=== PATIENT | male | born 1950 | race Caucasian/White ===

== ENCOUNTER 2017-03-19 12:15 | Emergency (ER) | payer OTHER ==
[2017-03-19 12:26] VITALS: BP 143/74
[2017-03-19] MEDS ORDERED: BOOSTRIX IM ONE (12:35)
--- NOTE | 2017-03-19 12:39 | Emergency Department Report ---
ED Trauma HPI - General Chief Complaint: Extremity Injury, Upper Stated Complaint: FALL 8 FEET Time Seen by Provider: 03/19/17 12:30 Source: patient, family - History of Present Illness Occurred: just prior to arrival Severity: severe Pain Location: back, upper extremity, lower extremity Method of Injury: fall (8 FT) Modifying Factors: improves with: cold therapy, immobilization, movement, pain medication, rest Loss of Consciousness: no loss of consciousness Associated Symptoms (Fall): denies: abdominal pain, chest pain, confusion, dizziness, headache, lightheadedness, muscle spasms, nausea/vomiting, neck pain , ringing in ears, seizures, shortness of breath, slurred speech, trouble walking, vision changes Allergies/Adverse Reactions: Allergies Penicillins Allergy (Verified 03/19/17 12:21) Hives Home Medications: Ambulatory Orders HYDROcodone/APAP 7.5-325 [[place] 7.5/325] 1 each PO Q6HR PRN #20 tablet 03/19/17 ED Review of Systems ROS: Stated complaint: FX R HAND Other details as noted in HPI Comment: All other systems reviewed and negative Constitutional: denies: fever Eyes: denies: eye pain ENT: denies: throat pain Respiratory: denies: cough, orthopnea Cardiovascular: denies: chest pain Endocrine: denies: excessive sweating, flushing, intolerance to cold, intolerance to heat Gastrointestinal: denies: abdominal pain Genitourinary: denies: urgency, dysuria Musculoskeletal: back pain (THORACIC), joint swelling (L WRIST), other (R GREAT TOE) Skin: other (ABRASION RLE) Neurological: denies: headache, weakness, numbness, paresthesias, confusion Psychiatric: denies: anxiety, depression Hematological/Lymphatic: denies: easy bleeding ED Past Medical Hx - Past Medical History Previous Medical History?: No - Surgical History Past Surgical History?: No - Social History Smoking Status: Never Smoker Substance Use Type: None - Medications Home Medications: Home Medications Medication Instructions Recorded Confirmed Last Taken Type HYDROcodone/APAP 7.5-325 [[place] 1 each PO Q6HR PRN #20 tablet 03/19/17 Unknown Rx 7.5/325] ED Physical Exam - General Limitations: No Limitations General appearance: alert - Eye Eye exam: Present: PERRL - ENT ENT exam: Present: mucous membranes moist - Neck Neck exam: Present: normal inspection - Respiratory Respiratory exam: Present: normal lung sounds bilaterally - Cardiovascular Cardiovascular Exam: Present: regular rate - GI/Abdominal GI/Abdominal exam: Present: soft - Rectal Rectal exam: Present: deferred - Extremities Exam Extremities exam: Present: tenderness, normal capillary refill - Expanded Lower Extremity Exam Right Hip exam: Present: normal inspection Upper Leg exam: Present: normal inspection Knee exam: Present: normal inspection Lower Leg exam: Present: normal inspection Ankle exam: Present: normal inspection Foot/Toe exam: Present: normal inspection Neuro vascular tendon exam: Present: no vascular compromise Left Hip exam: Present: normal inspection Upper Leg exam: Present: normal inspection Knee exam: Present: normal inspection Lower Leg exam: Present: erythema (ABRASION) Ankle exam: Present: abrasion (GREAT TOE) Foot/Toe exam: Present: abrasion, erythema Neuro vascular tendon exam: Present: no vascular compromise 1 - TOE PAIN AND ABRASION 2 - ABRASION - Back Exam Back exam: Present: paraspinal tenderness - Neurological Exam Neurological exam: Present: alert, oriented X3 - Psychiatric Psychiatric exam: Present: normal affect, normal mood - Skin Skin exam: Present: warm, dry, other (ABRASION) ED Course Vital Signs 03/19/17 12:22 Temperature 97.5 F L Pulse Rate 65 Respiratory 18 Rate Blood Pressure 143/74 O2 Sat by Pulse 99 Oximetry - Reevaluation(s) Reevaluation #1: SP FALL FROM LADDER ? LOC TO ER C COLLAR PLACED ? LOC HERE W [facility] INTACT SCANS NOTED WOUND CARE WRIST AND TOE SPLINT MEDICATED. Reevaluation #2: 03/19/17 14:04 DR LOPEZ UPDATED ORTHO PAGED SPLINT ORDERED AGAIN TO JOELLE SOME PAIN RELIEF W ICE AND RX Reevaluation #3: 03/19/17 14:11 DR REYNOLDS PHONED AND AWARE OF BACK T3 SUP ENDPLATE AND WRIST FX PER RAD READ PLAN OBTAINED FOLLOWS DC HOME W FU ED Medical Decision Making - Lab Data Result diagrams: 03/19/17 13:30 03/19/17 13:30 - Radiology Data Radiology results: report reviewed, image reviewed - Medical Decision Making SEE NOTE - Differential Diagnosis 8 FT FALL RO FX Critical care attestation.: If time is entered above; I have spent that time in minutes in the direct care of this critically ill patient, excluding procedure time. ED Disposition Clinical Impression: Abrasion hip/leg, Toe fracture, Thoracic spine fracture, Wrist fracture, left, Fall, Leukocytosis Disposition: - TO HOME OR SELFCARE Is pt being admited?: No Does the pt Need Aspirin: No Condition: Stable Instructions: Toe Fracture (ED), Wrist Fracture in Adults (ED), Thoracolumbar Fracture (ED) Additional Instructions: REST NO LADDERS NO WORK WARM COMPRESSES TO BACK ICE TO WRIST KEEP SPLINT ON UNTIL TUESDAY WHEN DOCTOR TAKES IT OFF KEEP R RODRIGUES WOUND CLEAN AND DRY. ICE IF SORE CHANGE DRESSING TO YOUR TOE EVERY DAY. KEEP CLEAN AND DRY WASH WITH SOAP AND WATER YOU NEED TO DO THE FOLLOWING 1. FOLLOW UP WITH DR REYNOLDS ON TUESDAY- WE HAVE CALLED HIM AND HE IS AWARE OF YOU 2 FOLLOW UP WITH PCP ON TUESDAY TO RECHECK YOUR LAB WORK- YOUR WHITE BLOOD CELLS HIGH TODAY WITH NO INFECTION SEE LIST BELOW Prescriptions: HYDROcodone/APAP 7.5-325 [[place] 7.5/325] 1 each PO Q6HR PRN #20 tablet PRN Reason: Pain Referrals: PRIMARY CARE, [Primary Care Provider] - 3-5 Days JERRI TORRES MD [Staff Physician] - 3-5 Days TWAN REYNOLDS MD [Staff Physician] - 3-5 Days Time of Disposition: 15:59
[2017-03-19] MEDS ORDERED: NORCO 5/325 PO ONE (13:00)
--- NOTE | 2017-03-19 13:27 | Cat Scan Report ---
CT SCAN OF THE CERVICAL SPINE: HISTORY: Trauma, injury. TECHNIQUE: Contiguous 1.25 mm axial images of the cervical spine were obtained. Sagittal and coronal reformatted images. FINDINGS: There is normal alignment of the cervical spine. The body, pedicles and posterior ligaments appear normal. No evidence of fracture or subluxation is seen. Mild multilevel degenerative disc disease and facet arthropathy are noted throughout the cervical region. The spinal canal appears normal. The prevertebral soft tissues appear normal. IMPRESSION: Mild cervical spondylosis. No acute process is noted.
--- NOTE | 2017-03-19 13:28 | Cat Scan Report ---
CT HEAD WITHOUT CONTRAST: HISTORY: Trauma. TECHNIQUE: Sequential 2.5mm CT images. COMPARISON: none. FINDINGS: Cerebral Parenchyma: Within normal limits. Cerebellum: Within normal limits. Brainstem: Within normal limits. Ventricles: Normal. Sella: Normal. Extra-axial spaces: Normal. Basal Cisterns: Normal. Intracranial Hemorrhage: None. Midline Shift: None. Calvarium: Normal. Sinuses: Normal. Mastoid Air Cells: Normal. Visualized Orbits: Normal. IMPRESSION: Cranial CT scan within normal limits.
--- NOTE | 2017-03-19 13:30 | Cat Scan Report ---
CT THORACIC SPINE WITHOUT CONTRAST History: Trauma. Technique: Helical CT without IV contrast. Sagittal and coronal reformatted images. Findings: Very subtle fracture lines are identified throughout the superior endplate of T3 which is best demonstrated on image 49, series 3. No loss of height or retropulsion of bony fragments into the canal. The remaining vertebral bodies are normal height and alignment. No additional fractures are identified. The posterior elements are intact. Minimal multilevel degenerative disc disease is noted. The spinal canal appears normal caliber. The paraspinal soft tissues are unremarkable. Mild osteopenia is noted. Impression: Subtle nondisplaced T3 superior endplate fracture.
--- NOTE | 2017-03-19 13:32 | Cat Scan Report ---
CT LUMBAR SPINE WITHOUT CONTRAST History: Trauma Technique: Helical CT with sagittal and coronal reformatted images. Findings: Osteopenia is noted. There is 5 mm anterolisthesis of L4 with respect to L5 which appears to be secondary to degenerative facet arthropathy. No pars defect is identified. There is normal alignment of the remaining vertebral bodies. No evidence for fracture or bone lesion. Mild to moderate multilevel facet arthropathy is identified. Mild to moderate disc space narrowing is identified at L4-5 and L5-S1. Mild to moderate central canal stenosis and mild bilateral neural foraminal narrowing is suspected at L4-5. Impression: No evidence for acute injury. Osteopenia. Degenerative changes as described. Spondylolisthesis of L4 with respect L5 with mild to moderate central canal narrowing.
--- NOTE | 2017-03-19 13:39 | XRay Report ---
LEFT WRIST, 4 views: HISTORY: Left wrist pain. A comminuted, impacted fracture of the distal radius is identified with intra-articular extension. There is posterior angulation of the distal radius estimated at 25 degrees. The distal ulna and carpal bones are grossly intact. There is diffuse soft tissue swelling. IMPRESSION: Comminuted, impacted, intra-articular fracture of the distal radius. Consultation with orthopedics is recommended.
--- NOTE | 2017-03-19 13:40 | XRay Report ---
LEFT TOES, 3 views: History: Laceration, pain, fall. A Chip fracture or avulsion fracture is identified at the base of the great toe medially. No calcified callus. This has the appearance of an acute fracture. The remaining left toes are intact. No erosive joint pathology. Laceration on the dorsal surface of the great toe is noted on the lateral view. IMPRESSION: Chip fracture or avulsion fracture at the base of the great toe.
[2017-03-19 13:46] LABS: Hematocrit 46.9 % (35.5-45.6); Hemoglobin 15.9 gm/dl (11.8-15.2); Mean Corpuscular HGB Conc 34 % (32-34); Mean Corpuscular Hemoglobin 30 pg (28-32); Mean Corpuscular Volume 89 fl (84-94); Platelet Count 263 K/mm3 (140-440); Red Blood Count 5.25 M/mm3 (3.65-5.03); Red Cell Distribution Width 12.6 % (13.2-15.2)
[2017-03-19 13:55] LABS: White Blood Count 20.8 K/mm3 (4.5-11.0)
[2017-03-19 13:56] LABS: INR 0.97 (0.87-1.13)
[2017-03-19 13:57] LABS: Partial Thromboplastin Time 27.8 Sec. (24.2-36.6)
[2017-03-19 14:05] LABS: Alanine Aminotransferase 21 units/L (7-56); Albumin/Globulin Ratio 1.3 %; Alkaline Phosphatase 60 units/L (35-129); Anion Gap 17 mmol/L; BUN/Creatinine Ratio 21; Blood Urea Nitrogen 17 mg/dL (9-20); Calcium 9.3 mg/dL (8.4-10.2); Carbon Dioxide 26 mmol/L (22-30); Chloride 101.3 mmol/L (98-107); Glucose 99 mg/dL (75-100); Potassium 4.4 mmol/L (3.6-5.0); Sodium 140 mmol/L (137-145); Total Protein 7.2 g/dL (6.3-8.2)
[2017-03-19] MEDS ORDERED: ANCEF IM ONE (14:06)
[2017-03-19] MEDS ORDERED: NACL 0.9% 1000 ML 1,000 ML IV ONE (14:13)
[2017-03-19 14:28] LABS: Basophils % (Manual) 0 % (0.0-1.8); Blastocytes % (Manual) 0 %
[2017-03-19 14:29] LABS: Diff Status Complete; RBC Morphology Normal
[2017-03-19] MEDS ORDERED: ceFAZolin 1 GM in NACL 0.9% 20 ML IV SCH (15:00)
[2017-03-19 15:04] LABS: Urine Drugs of Abuse Note Disclamer
[2017-03-19 15:11] LABS: Bilirubin,Urine NEG (Negative); Blood,Urine NEG (Negative); Ketones,Urine NEG (Negative); Leukocyte Esterase,Urine NEG (Negative); Mucus,Urine FEW /HPF; Nitrite,Urine NEG (Negative); Protein,Urine <15 mg/dL mg/dL (Negative); Urobilinogen,Urine < 2.0 mg/dL (<2.0)
--- NOTE | 2017-03-19 15:20 | XRay Report ---
FINAL REPORT EXAM: XR CHEST 1V AP HISTORY: LEUKOCYTOSIS SP FALL TECHNIQUE: Frontal chest radiograph. PRIORS: None. FINDINGS: The cardiomediastinal silhouette is normal. No focal consolidation. No pleural effusion. No pneumothorax. No acute osseous abnormality. IMPRESSION: No acute cardiopulmonary process.
[2017-03-19] MEDS ORDERED: NORCO 10/325 PO ONE (15:58)
== END 2017-03-19 16:31 | disposition home or self-care (01) ==
LOC: ED 12:15
DX: S22.039A Unspecified fracture of third thoracic vertebra, initial encounter for closed fracture (principal); S52.502A Unspecified fracture of the lower end of left radius, initial encounter for closed fracture; S92.492A Other fracture of left great toe, initial encounter for closed fracture; S70.211A Abrasion, right hip, initial encounter; Z88.0 Allergy status to penicillin; W17.89XA Other fall from one level to another, initial encounter; Y93.89 Activity, other specified; Y92.89 Other specified places as the place of occurrence of the external cause; Y99.8 Other external cause status
CPT/HCPCS: 29125; 36415; 70450; 71010; 72125; 72128; 72131; 73110; 73660; 80053; 80307; 81001; 85007; 85025; 85610; 85730; 90471; 90715; 96361; 96374; 99285; J0690; J7030